=== PATIENT | female | born 1990 ===

== ENCOUNTER 2021-12-14 15:01 | Emergency (ER) | payer BC ==
[2021-12-14] MEDS ORDERED: CORTISPORIN OTI10 M1 EARLF (16:53)
[2021-12-14] MEDS ORDERED: AMOXICILLIN500 M1 PO (16:53)
[2021-12-14] MEDS ORDERED: IBUPROFEN600 MG PO (16:53)
== END 2021-12-14 17:15 | disposition home or self-care (01) ==
LOC: ER1 15:01
DX: H60.92 Unspecified otitis externa, left ear (principal); H61.21 Impacted cerumen, right ear
CPT/HCPCS: 99282

== ENCOUNTER → 2022-01-13 | Outpatient (CLI) | payer BC ==
[~2022-01-13] MED LIST: AMOXICILLIN500 M1 PO; CORTISPORIN OTI10 M1 EARLF; IBUPROFEN600 MG PO
[2022-01-13 10:49] LABS: RED BLOOD COUNT 4.31 M/UL (4.00-5.10); WHITE BLOOD COUNT 5.8 K/UL (4.5-11.0)
[2022-01-13 11:10] LABS: BUN/CREATININE RATIO 19 (0-10)
[2022-01-16 05:11] LABS: ENDOMYSIAL ANTIBODY IGA Negative (Negative); IMMUNOGLOBULIN A, QN, SERUM 174 mg/dL (87-352); T-TRANSGLUTAMINASE (TTG) IGA <2 U/mL (0-3)
== END ==
LOC: LAB 10:17
PROVIDERS: Family Medicine
DX: K64.4 Residual hemorrhoidal skin tags (principal); L60.0 Ingrowing nail; R10.84 Generalized abdominal pain; R51.9 Headache, unspecified
CPT/HCPCS: 80053; 82607; 82784; 83735; 84439; 84443; 85025

== ENCOUNTER → 2022-02-09 | Outpatient (CLI) | payer BC | LOC: EXRD 02-07 10:00 | DX: R10.11 Right upper quadrant pain (principal) | CPT/HCPCS: 76705 ==